=== PATIENT | female | born 1990 | race Two or more races ===

== ENCOUNTER 2019-07-04 19:01 | Emergency (ER) | payer MEDICAID ==
[~2019-07-04] VITALS: Ht 154.9 cm; Wt 63.5 kg
[2019-07-04 19:18] VITALS: BP 134/91
[2019-07-04] MEDS ORDERED: Ketorolac 30mg Inj IV ONE (19:30)
[2019-07-04 20:06] LABS: EOSINOPHILS % (AUTO) 2.4 % (0.0-3.0); HEMATOCRIT 40.6 % (37.0-47.0); HEMOGLOBIN 14.8 G/DL (12.0-16.0); LYMPHOCYTES % (AUTO) 49.1 % (20.0-45.0); MEAN CORPUSCULAR VOLUME 82 FL (80-99); NEUTROPHILS % (AUTO) 40.5 % (45.0-75.0); PLATELET COUNT 287 K/UL (150-450); RED BLOOD COUNT 4.94 M/UL (4.20-5.40); RED CELL DISTRIBUTION WIDTH 10.4 % (11.6-14.8); WHITE BLOOD COUNT 7.9 K/UL (4.8-10.8)
[2019-07-04 20:18] LABS: ANION GAP 8 mmol/L (5-15); BLOOD UREA NITROGEN 16 mg/dL (7-18); CALCIUM 8.8 MG/DL (8.5-10.1); CARBON DIOXIDE 29 MMOL/L (21-32); CHLORIDE 105 MMOL/L (98-107); CREATININE 0.8 MG/DL (0.55-1.30); POTASSIUM 3.5 MMOL/L (3.5-5.1); SODIUM 142 MMOL/L (136-145)
[2019-07-04 20:23] LABS: BILIRUBIN, URINE NEGATIVE (NEGATIVE); COLOR,URINE PALE YELLOW; GLUCOSE, URINE (UA) NEGATIVE (NEGATIVE); KETONES,URINE NEGATIVE (NEGATIVE); LEUKOCYTE ESTERASE ,URINE 1+ (NEGATIVE); NITRITE,URINE NEGATIVE (NEGATIVE); PH,URINE 5 (4.5-8.0); PROTEIN,URINE 1+ (NEGATIVE); UROBILINOGEN,URINE NORMAL MG/DL (0.0-1.0)
[2019-07-04 20:23] LABS: ALANINE AMINOTRANSFERASE 26 U/L (12-78); ALBUMIN 3.8 G/DL (3.4-5.0); ALBUMIN/GLOBULIN RATIO 1.1 (1.0-2.7); ALKALINE PHOSPHATASE 71 U/L (46-116); ASPARTATE AMINO TRANSFERASE 19 U/L (15-37); BILIRUBIN,TOTAL 0.5 MG/DL (0.2-1.0)
[2019-07-04 20:24] LABS: APPEARANCE,URINE SLIGHTLY CLOUDY
--- NOTE | 2019-07-04 20:41 | Emergency Room Report ---
History of Present Illness General Chief Complaint: Abdominal Pain Source: Patient Present Illness HPI 29-year-old female with no segment past medical history here complaining of 3 days of diffuse abdominal pain rating a 7 out of 10, and multiple bouts of nonbloody emesis. Complains of having 2 bouts of diarrhea earlier today however diarrhea has stopped. Denies any blood in her stool. Denies fever and chills, recent travel, tobacco smoke, marijuana intake, and alcohol use. Reports that she has also been sick with cough and congestion for the past week. Denies shortness of breath, chest pain, palpitation, headache and dizziness, sore throat. Has not taken medication for symptom relief. Patient denies any urinary symptoms, reports that last menstrual period was 6 months ago. Patient has a Nexplanon placed in. He is not sexually active with the same partner. Denies any vaginal discharge. Allergies: Coded Allergies: No Known Allergies (Unverified , 07/04/19) Patient History Past Medical History: see triage record Past Surgical History: unable to obtain Pertinent Family History: none Now: No Immunizations: UTD Reviewed Nursing Documentation: PMH: Agreed; PSxH: Agreed Nursing Documentation-PMH Past Medical History: No Stated History Review of Systems All Other Systems: negative except mentioned in HPI Physical Exam Vital Signs Date Time Temp Pulse Resp B/P (MAP) Pulse Ox O2 Delivery O2 Flow Rate FiO2 07/04/19 19:06 99.0 87 18 127/80 (96) 98 Room Air Sp02 EP Interpretation: reviewed, normal General Appearance: no apparent distress, alert, GCS 15, non-toxic Head: normocephalic, atraumatic Eyes: bilateral eye normal inspection, bilateral eye PERRL ENT: hearing grossly normal, normal pharynx, no angioedema, normal voice Neck: full range of motion, supple, thyroid normal, no meningismus, no bony tend, supple/symm/no masses Respiratory: chest non-tender, lungs clear, normal breath sounds, no rhonchi, no respiratory distress, no retraction, no wheezing, speaking full sentences Cardiovascular #1: regular rate, rhythm, no edema, no murmur Gastrointestinal: normal bowel sounds, non tender, soft, no mass, no organomegaly, no peritonitis, no bruit, non-distended, no guarding, no hernia, no rebound, other - Negative McBurney's and Rovsing's Genitourinary: no CVA tenderness Musculoskeletal: back normal, no calf tenderness Neurologic: alert, motor strength/tone normal, oriented x3, sensory intact, responsive, speech normal Psychiatric: judgement/insight normal, memory normal, mood/affect normal, no suicidal/homicidal ideation Skin: no rash Lymphatic: no adenopathy Medical Decision Making PA Attestation All my diagnosis and treatment plans were reviewed ad discussed with my supervising physician Dr. Mc Diagnostic Impression: Primary Impression: Abdominal pain Additional Impressions: URI (upper respiratory infection) UTI (urinary tract infection) ER Course 29-year-old female with no segment past medical history here complaining of 3 days of diffuse abdominal pain rating a 7 out of 10, and multiple bouts of nonbloody emesis. Complains of having 2 bouts of diarrhea earlier today however diarrhea has stopped. Denies any blood in her stool. Denies fever and chills, recent travel, tobacco smoke, marijuana intake, and alcohol use. Reports that she has also been sick with cough and congestion for the past week. Denies shortness of breath, chest pain, palpitation, headache and dizziness, sore throat. Has not taken medication for symptom relief. Patient denies any urinary symptoms, reports that last menstrual period was 6 months ago. Patient has a Nexplanon placed in. He is not sexually active with the same partner. Denies any vaginal discharge. Ddx considered but are not limited to: appendicitis, cholecystis, gastritis, gastroenteritis, UTI, pyelonephritis, SBO, diverticulitis, influenza with GI manifestation, AK, complication with Vital signs: are WNL, pt. is afebrile H&PE are most consistent with: Abdominal pain due to gastroenteritis, URI, incidental finding of UTI ORDERS: Abdominal pain set, EKG, chest x-ray, Zofran, Tylenol, Phenergan, Macrobid ED INTERVENTIONS: NS bolus, Pepcid, Zofran, Toradol DISCHARGE: At this time pt. is stable for d/c to home. Will provide printed patient care instructions, and any necessary prescriptions. Care plan and follow up instructions have been discussed with the patient prior to discharge. Patient to follow-up with primary care provider, if worsening symptoms return to the emergency room. At this time no indication for scanning patient has patient does not have any acute abdomen. EKG Diagnostic Results Rate: normal Rhythm: NSR ST Segments: no acute changes Other Impression No acute ST changes Chest X-Ray Diagnostic Results Chest X-Ray Diagnostic Results : Chest X-Ray Ordered: Yes # of Views/Limited/Complete: 1 View Indication: Shortness of Breath EP Interpretation: Yes KADEEM Xray: Interpretation reviewed, by supervising MD, and agrees with findings. Interpretation: no consolidation, no effusion, no pneumothorax Impression: No acute disease Electronically Signed by: Patria Patton PA-C Last Vital Signs Date Time Temp Pulse Resp B/P (MAP) Pulse Ox O2 Delivery O2 Flow Rate FiO2 07/04/19 20:23 99.0 07/04/19 19:18 79 18 134/91 100 Room Air Disposition: HOME, SELF-CARE Condition: Stable Referrals: NON PHYSICIAN (PCP) Patient Instructions: Abdominal Pain, Adult, Upper Respiratory Infection, Adult , [id number], Urinary Tract Infection, [id number] Additional Instructions: Take medication as directed, follow-up with your primary care provider, if worsening symptoms return to the emergency room. Patria Kingston Jul 04, 2019 20:41
[2019-07-04] MEDS ORDERED: TYLENOL EXTRA500 MG ORAL (20:49)
[2019-07-04] MEDS ORDERED: PROMETHAZI6.25 MG/1 ORAL (20:49)
[2019-07-04] MEDS ORDERED: NITROFURANTOIN100 M2 ORAL (20:49)
[2019-07-04] MEDS ORDERED: ZOFRAN4 M1 ORAL (20:49)
[2019-07-04 21:12] VITALS: BP 115/77
[2019-07-04 21:19] VITALS: BP 126/79
--- NOTE | 2019-07-05 11:16 | Diagnostic Imaging Report ---
Indication: Chest pain Technique: One view of the chest Comparison: none Findings: Lungs and pleural spaces are clear. Heart size is normal. Impression: No acute process
== END 2019-07-04 21:19 | disposition home or self-care (01) ==
LOC: EMR 19:29
DX: R10.9 Unspecified abdominal pain (principal); J06.9 Acute upper respiratory infection, unspecified; N39.0 Urinary tract infection, site not specified
CPT/HCPCS: 36415; 71045; 80053; 81003; 81025; 83690; 85025; 85610; 85730; 86850; 86900; 86901; 93005; 96361; 96374; 96375; J1885; J2405; J7030; S0028; Z7502; 99284